=== PATIENT | female | born 1975 | race African-American/Black ===

== ENCOUNTER 2023-11-17 16:50 | Emergency (ER) | payer MEDICAID, SELFPAY ==
--- NOTE | ~2023-11-17 | CT_ITS ---
EXAMINATION: CT KNEE WITHOUT CONTRAST, RIGHT CLINICAL INFORMATION: Fall and deformity COMPARISON: Plain films today TECHNIQUE: Multiple serial thin slice helical CT scan images through the right knee were obtained. Soft tissue and bony algorithms were evaluated. Coronal and sagittal reformatted images were obtained. This CT examination was performed using dose optimization techniques as appropriate, variously including the following: *Automated exposure control *Adjustment of mA and/or kV according to patient size (this includes techniques or standardized protocols for targeted exams where dose is matched to indication/reason for exam; i.e. extremities or head) *Use of iterative reconstruction technique DLP: 183 mGy-cm FINDINGS: There is a lateral dislocation of the patella with kissing minimally displaced fractures along the medial aspect of the patella and lateral aspect of the femoral condyle. Additionally there is a small curvilinear osteochondral fragment seen within the intra-articular joint space. Likely donor site is along the anterolateral aspect of the femoral condyle along the trochlear notch. I do not appreciate any additional acute abnormality within the tibia or visualized proximal fibula. There is associated lipohemarthrosis in the knee joint space. CT/CT knee RT wo IV con IMPRESSION: Lateral dislocation of the patella with kissing minimally displaced fractures along the medial aspect of the patella and lateral aspect of the femoral condyle. Additionally there is a small curvilinear osteochondral fragment seen within the intra-articular joint space along the lateral joint space. Likely donor site is along the anterolateral aspect of the femoral condyle along the trochlear notch.
--- NOTE | ~2023-11-17 | XR_ITS ---
EXAMINATION: X-RAY FEMUR, RIGHT X-RAY KNEE, RIGHT CLINICAL INFORMATION: Fall, severe pain. COMPARISON: None available. TECHNIQUE: 2 views of the right femur and 2 views of the right knee. FINDINGS: Patient's rotation and body habitus somewhat limits the examination. Accounting for these limitations, no discrete fractures or subluxations are seen. A moderate-sized joint effusion is suspected in the right knee, although evaluation is limited due to obliquity of the lateral projection. No unexpected radiopaque foreign bodies. XR/XR femur RT 2V IMPRESSION: Evaluation is limited due to patient body habitus and rotation, in specific visualization of the right knee on the lateral view and right hip on the crosstable view is significantly limited. No discrete fractures or subluxations are seen. Suspect moderate size joint effusion in the right knee. In view of limitations of the examination, a repeat radiographic series or further correlation with CT could be obtained as clinically warranted if an occult injury is highly clinically suspected.
--- NOTE | ~2023-11-17 | XR_ITS ---
EXAMINATION: X-RAY FEMUR, RIGHT X-RAY KNEE, RIGHT CLINICAL INFORMATION: Fall, severe pain. COMPARISON: None available. TECHNIQUE: 2 views of the right femur and 2 views of the right knee. FINDINGS: Patient's rotation and body habitus somewhat limits the examination. Accounting for these limitations, no discrete fractures or subluxations are seen. A moderate-sized joint effusion is suspected in the right knee, although evaluation is limited due to obliquity of the lateral projection. No unexpected radiopaque foreign bodies. XR/XR knee RT 3V IMPRESSION: Evaluation is limited due to patient body habitus and rotation, in specific visualization of the right knee on the lateral view and right hip on the crosstable view is significantly limited. No discrete fractures or subluxations are seen. Suspect moderate size joint effusion in the right knee. In view of limitations of the examination, a repeat radiographic series or further correlation with CT could be obtained as clinically warranted if an occult injury is highly clinically suspected.
[2023-11-17 17:02] VITALS: BP 144/82; PULSE 105; O2SAT 98; BMI 28.6
--- NOTE | 2023-11-17 17:03 | ED_ITS ---
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 Denies taking anticoagulation. Has not been ambulatory since incident. Denies numbness, tingling, weakness, injury to other area Related Data Allergies Allergy/AdvReac Type Severity Reaction Status Date / Time No Known Allergies Allergy Verified 11/17/23 17:01 Review of Systems Review of Systems: Constitutional: No Fever, No Chills ENT/Mouth: No Ear Pain, No Nasal Congestion, No sore throat, No Rhinorrhea, No Swallowing Difficulty Cardiovascular: No Chest Pain, No SOB Respiratory: No Cough, No Sputum Gastrointestinal: No Nausea, No Vomiting, No Diarrhea, No Constipation, No Abdominal pain Musculoskeletal: +joint pain, No Myalgias, + Joint Swelling Skin: No Skin Lesions, No rash Neuro: No Weakness, No Numbness, No Paresthesias, no head trauma, no LOC Yes all other systems are reviewed and are negative Constitutional: Constitutional: Reports as per [facility] Past Medical History Attestation statement: The following information was validated with the patient. Source: old records reviewed Social History Social History Smoked in Last 30 Days: No Use of substances other than those prescribed or required for medical reasons: No Advance Directives: No Advance Directives Information Provided: No Patient : No Physical Exam Vital Signs: Vital Signs: Last Vital Signs Temp 98.3 F 11/17/23 17:05 Pulse 97 11/17/23 19:31 Resp 16 11/17/23 19:31 BP 109/61 11/17/23 19:31 Pulse Ox 100 11/17/23 19:31 O2 Del Method Room Air 11/17/23 19:31 BMI result Body Mass Index 28.6 Const: General: cooperative, healthy appearing and no acute distress Orientation/consciousness: patient oriented x3 Limitations: no limitations HEENT: Head: Yes normal to inspection and Yes atraumatic Ears: hearing grossly normal bilaterally General nose exam: Normal external nose present Face and sinus: Yes normal facial exam Eyes: General: appearance normal, both eyes and all related structures EOM: EOMs intact bilaterally Neck: Neck: Yes normal visual inspection and Yes no meningeal signs Resp: Effort & Inspection: normal respiratory effort and no respiratory distress Cardio: Rate: regular rate GI: Inspection: Yes normal to inspection Palpation (GI): Soft to palpation, nontender, no guarding and not rigid Skin: Rashes: no rashes Wounds: no wounds Neuro: General: patient oriented x3, tone normal and no meningeal signs Cranial nerves: Yes CN's II-XII intact bilaterally Gait exam (Neuro): Normal gait present Extrem: Other: Right knee with noted swelling/deformity. Externally rotated. Neurovascularly intact distally. No erythema/warmth or ecchymosis. Limited ROM secondary to pain Course Course Course Narrative: XR knee RT 3V/XR femur RT 2V IMPRESSION: Evaluation is limited due to patient body habitus and rotation, in specific visualization of the right knee on the lateral view and right hip on the crosstable view is significantly limited. No discrete fractures or subluxations are seen. Suspect moderate size joint effusion in the right knee. In view of limitations of the examination, a repeat radiographic series or further correlation with CT could be obtained as clinically warranted if an occult injury is highly clinically suspected. > will obtain CT for further eval. -1900--ED care transferred to [facility] pending CT & dispo per results Reevaluation(s) Reevaluation #1: Patient's CT scan showed as follows: EXAMINATION: CT KNEE WITHOUT CONTRAST, RIGHT CLINICAL INFORMATION: Fall and deformity COMPARISON: Plain films today TECHNIQUE: Multiple serial thin slice helical CT scan images through the right knee were obtained. Soft tissue and bony algorithms were evaluated. Coronal and sagittal reformatted images were obtained. This CT examination was performed using dose optimization techniques as appropriate, variously including the following: *Automated exposure control *Adjustment of mA and/or kV according to patient size (this includes techniques or standardized protocols for targeted exams where dose is matched to indication/reason for exam; i.e. extremities or head) *Use of iterative reconstruction technique DLP: 183 mGy-cm FINDINGS: There is a lateral dislocation of the patella with kissing minimally displaced fractures along the medial aspect of the patella and lateral aspect of the femoral condyle. Additionally there is a small curvilinear osteochondral fragment seen within the intra-articular joint space. Likely donor site is along the anterolateral aspect of the femoral condyle along the trochlear notch. I do not appreciate any additional acute abnormality within the tibia or visualized proximal fibula. There is associated lipohemarthrosis in the knee joint space. CT/CT knee RT wo IV con IMPRESSION: Lateral dislocation of the patella with kissing minimally displaced fractures along the medial aspect of the patella and lateral aspect of the femoral condyle. Additionally there is a small curvilinear osteochondral fragment seen within the intra-articular joint space along the lateral joint space. Likely donor site is along the anterolateral aspect of the femoral condyle along the trochlear notch. Dictated By: Jt Schofield MD Signed By: Electronically signed by Jt Schofield MD 11/17/231941 I consulted the orthopedic provider environmental engineering manager who recommended reducing the patella, knee immobilizer, non weightbearing on that side, and following up in the office. Patient's patella was reduced, without incident. Patient's PMS was intact prior to and after reduction. Patient's right leg was placed in a knee immobilizer and given crutches with crutch instructions. Patient's PMS was intact prior to and after knee immobilizer placement. Time: 20:53 Medications Administered Discontinued Medications Generic Name Dose Route Start Last Admin Trade Name Freq PRN Reason Stop Dose Admin Morphine Sulfate 2 mg 11/17/23 17:19 11/17/23 17:28 Morphine Sulfate 2 Mg/Ml Cartridge IVPUSH 11/17/23 17:20 2 mg ONCE ONE Administration Protocol Morphine Sulfate 4 mg 11/17/23 20:21 11/17/23 20:35 Morphine Sulfate 4 Mg/Ml Cartridge IVPUSH 11/17/23 20:22 4 mg ONCE ONE Administration Protocol Ondansetron HCl 4 mg 11/17/23 17:19 11/17/23 17:28 Ondansetron Hcl 4 Mg/2 Ml Vial IVPUSH 11/17/23 17:20 4 mg ONCE ONE Administration Procedures Orthopedic Fracture Reduction Fracture #1: Time Out Performed: Yes Side: right Fracture Reduction Location: other (patella) Analgesia: none Technique: direct manipulation Post-reduction neuro exam: intact Post-reduction vascular exam: intact Patient Tolerated Procedure: well Orthopedic Splinting/Casting Injury #1: Side: right Lower Extremity Injury Location: knee Lower Extremity Immobilizer: knee immobilizer Other Orthopedic Equipment: crutches Medical Decision Making Medical Decision Making MDM Narrative: 48-year-old [place]-speaking female with no significant past medical history presenting to the ED complaining of right knee pain and swelling 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 On exam tachycardic likely from pain, NAD, nontoxic appearing, physical exam as noted above. Concern for fracture versus dislocation. Low suspicion for DVT/vascular compromise Plan: X-ray, pain control Please refer to course for remaining clinical decision making, interpretation of labs/imaging results, and discussions with consultants and/or family members. Differential Diagnosis Differential Diagnoses: The differential diagnosis associated with the presentation includes As above Admission/Observation Consideration of admission/observation: Escalation of care including admission/observation considered Consult Healthcare Provider Management of the patient was discussed with: Fisher Clam (orthopedist consulted as noted in the course portion of this note.) Lab Data [facility] Lab Attestation statement: I reviewed the patient's lab results. Independent Interpretation I performed an independent interpretation of an: Plain X-Ray and CT Scan Radiology Impression Discussion of test interpretation with radiology: I have reviewed the radiologist's reading. External Record Review External record reviewed: Inpatient record, Office record, Outpatient record, Prior outpatient labs, Prior outpatient radiology, Primary care record and Outside ED record Tests considered The following testing was considered but not selected: As above Prescription Management I considered prescription management with: Pain Medication Critical Care Time Critical Care Time Critical Care Time: Yes Total Critical Care Time: 45 Attestation: I spent 45 minutes of Critical Care Time with this patient. This does not include time spent on separately reported billable procedures. Discharge Plan Discharge Clinical Impression: Injury of knee, Femur fracture, Dislocated knee Patient Disposition: Home, Self-Care Instructions: Leg Fracture (ED), Crutch Instructions (ED), Knee Dislocation (ED) Additional Instructions: Do NOT put ANY weight on the right lower extremity. Follow up with your primary care provider and an orthopedic provider. Return to the emergency department immediately if your symptoms worsen or if you develop any dizziness, shortness of breath, difficulty breathing, chest pain, blurry vision, loss of vision, nausea, vomiting, abdominal pain, fever, chills, back pain, or any other complaints. NO ponga TORI?N peso sobre la extremidad inferior derecha. Otis un seguimiento con nur proveedor de atenci?n primaria y un proveedor ortop?dico. Regrese al departamento de emergencias inmediatamente si ranjana s?ntomas empeoran o si presenta mareos, dificultad para respirar, dificultad para respirar, dolor en el pecho, visi?n borrosa, p?rdida de la visi?n, n?useas, v?mitos, dolor abdominal, fiebre, escalofr?os, dolor de espalda o cualquier otras quejas. Referrals: [facility] [Provider Group] (Call to establish and follow up with a primary care provider. If you already have a primary care provider, please follow up with them. Llame para establecer y realizar un seguimiento con un proveedor de atenci?n primaria. Si ya tiene un proveedor de atenci?n primaria, otis un seguimiento con ?l. ) [facility] [[facility]] (Call to establish and follow up with a primary care provider. If you already have a primary care provider, please follow up with them. Llame para establecer y realizar un seguimiento con un proveedor de atenci?n primaria. Si ya tiene un proveedor de atenci?n primaria, otis un seguimiento con ?l. ) [facility] [[facility]] (Call to establish and follow up with a primary care provider. If you already have a primary care provider, please follow up with them. Llame para establecer y realizar un seguimiento con un proveedor de atenci?n primaria. Si ya tiene un proveedor de atenci?n primaria, otis un seguimiento con ?l. ) [facility] [Provider Group] (Call to establish and follow up with an orthopedic provider. Llame para establecer y realizar un seguimiento con un proveedor ortop?dico.) Stand Alone Forms: Work/School Release Print Language: [place]
[2023-11-17 17:05] VITALS: BP 109/64; PULSE 102; RESP 18; TEMP 36.8; O2SAT 99
--- NOTE | 2023-11-17 17:17 | PC.NURSE ---
22gIV placed in right hand w/o difficulty. will administer medication when able. pt awaiting xray at this time.
[2023-11-17] MEDS: Morphine Sulfate 2 MG/ML CARTRIDGE IVPUSH (17:28)
[2023-11-17] MEDS: ondansetron HCL 4 MG/2 ML VIAL IVPUSH (17:28)
--- NOTE | 2023-11-17 17:32 | PC.NURSE ---
medication administered per provider order.
--- NOTE | 2023-11-17 17:40 | PC.NURSE ---
pt to xray at this time.
--- NOTE | 2023-11-17 19:06 | PC.NURSE ---
pt returned from CT at this time.
[2023-11-17 19:31] VITALS: BP 109/61; PULSE 97; RESP 16; O2SAT 100
--- NOTE | 2023-11-17 19:32 | PC.NURSE ---
vss and up to date. pt verbalizing no change in pain at this time. resting comfortably in no apparent distress - awaiting results from CT at this time. bedside.
[2023-11-17] MEDS: Morphine Sulfate 4 MG/ML CARTRIDGE IVPUSH (20:35)
--- NOTE | 2023-11-17 20:39 | PC.NURSE ---
pt c/o increase in right knee pain - provider aware. medication administered per provider order. ED provider/dust control engineer bedside discussing results of xray/CT - pt aware of plan of care at this time.
[2023-11-17 21:11] VITALS: BP 107/63; PULSE 90; RESP 18; TEMP 36.8; O2SAT 98
--- NOTE | 2023-11-17 21:11 | PC.NURSE ---
pt right knee placed in immobilizer by tech - pt stating that she wants to take a break prior to crutch training.
== END 2023-11-17 21:25 | disposition home or self-care (01) ==
PROVIDERS: Emergency Provider Internal Medicine
DX: S72.91XA Unspecified fracture of right femur, initial encounter for closed fracture (principal); S83.104A Unspecified dislocation of right knee, initial encounter; M79.604 Pain in right leg; W01.10XA Fall on same level from slipping, tripping and stumbling with subsequent striking against unspecified object, initial encounter; Y93.9 Activity, unspecified; Y92.9 Unspecified place or not applicable; Y99.9 Unspecified external cause status; Z79.899 Other long term (current) drug therapy
CPT/HCPCS: 73552; 73562; 73700; 96374; 96375; 96376; 99284; J2270; J2405

== ENCOUNTER 2023-11-24 10:53 | Outpatient (REF) | payer MEDICAID, SELFPAY ==
--- NOTE | ~2023-11-24 | XR_ITS ---
EXAMINATION: XR KNEE, RIGHT CLINICAL INFORMATION: Right knee pain COMPARISON: Right knee x-rays on 11/17/2023 TECHNIQUE: Three views of the right knee. FINDINGS: BONES: Bony structures are intact. There is no focal bone destruction or periosteal reaction seen. JOINTS: There is lateral subluxation of the right patella. SOFT TISSUE: Right suprapatellar fat pad shows bulging increase in density. No radiopaque foreign body or abnormal air collection is seen. XR/XR knee RT 3V IMPRESSION: 1. Recurrent prominent right knee effusion. 2. Current examination shows lateral subluxation of the right patellofemoral joint. 3. No fracture or dislocation or signs of osteomyelitis are found.
== END 2023-11-24 10:54 | disposition home or self-care (01) ==
LOC: HO.HOSX 10:53
PROVIDERS: Visit Provider Physician Assistant
DX: S82.001A Unspecified fracture of right patella, initial encounter for closed fracture (principal); S83.004A Unspecified dislocation of right patella, initial encounter; S72.411A Displaced unspecified condyle fracture of lower end of right femur, initial encounter for closed fracture
CPT/HCPCS: 73562; 99212

== ENCOUNTER 2023-11-24 13:49 | Outpatient (AMB) | payer MEDICAID, SELFPAY ==
--- NOTE | 2023-11-24 14:07 | MHC.OFFVIS ---
Intake Intake Visit Reasons: FC- RT Femur fracture, Dislocated knee Intake Note: Ana Paula is a 48 year old female who presents today for a evaluation of her right knee pain, DOI 11/17/23. Patient reports she slip and fell on her dogs urine in her kitchen. She states that her pain is getting better every day and is able to apply more weight on her right side. Allergies No Known Allergies Allergy (Verified 11/24/23 14:16) HPI FC- RT Femur fracture, Dislocated knee HPI Details 48-year-old female, who is Trin[place] speaking, presents in the office today, as a new patient, for an evaluation of right knee pain. The patient presented to the ED on 11/17/2023 status post a mechanical slip and fall on dog urine. X-rays and CT of the right knee were obtained. Her knee was reduced without incident. She was placed in a knee immobilizer and given crutches. The patient reports her pain is getting better daily and is able to apply weight on her right lower extremity. She is accompanied in the office today by a male family member. Review of Systems Const All systems reviewed & are unremarkable except as noted in HPI and below Physical Exam Const General: cooperative and no acute distress Orientation/consciousness: patient oriented x3 Resp Effort & Inspection: normal respiratory effort and able to speak in complete sentences Cardio Peripheral pulses: Peripheral pulses 2+ throughout Skin General skin exam: no rashes or lesions noted Neuro General: patient oriented x3 Extrem Other: Right knee: Moderate effusion with resolving ecchymosis. ROM was not attempted due to possible fracture fragment in the joint space. Able to dorsiflex and plantarflex. Sensation intact. Left knee: Hyper-mobility noted of the patella. Office Procedures Fracture Care Fracture Billing Code: Fracture Billing Code Assessment & Plan Assessment & Plan (1) Fracture of right patella: Code(s): S82.001A - Unspecified fracture of right patella, initial encounter for closed fracture (2) Dislocation of right patella: Code(s): S83.004A - Unspecified dislocation of right patella, initial encounter (3) Fracture of femoral condyle, right, closed: Code(s): S72.411A - Displaced unspecified condyle fracture of lower end of right femur, initial encounter for closed fracture Plan Ms. Joel Abarca is a 48-year-old female, who is Trinid[place] speaking, presents in the office today, as a new patient, for an evaluation of right knee pain. The patient presented to the ED on 11/17/2023 status post a mechanical slip and fall on dog urine. X-rays and CT of the right knee were obtained. Her knee was reduced without incident. She was placed in a knee immobilizer and given crutches. The patient reports her pain is getting better daily and is able to apply weight on her right lower extremity. She is accompanied in the office today by a male family member. Dr. Betts was available to speak with me and review the imaging while in the office today and a collaborative treatment plan was made. I have placed an order for a stat CT scan to further evaluation if there is any fracture fragments in the joint. The patient was placed in an ACL brace, off the shelf, locked in extension. The patient was given an out of work note until further evaluation. Follow up will be in one week after the stat CT is obtained with Dr. Betts in the office, or sooner if needed. X-rays of the right knee which were obtained while in the office today and were reviewed by me, Cristina Lebron PA-C, redemonstrated of lateral aspect of the patella fracture. Nondisplaced fracture of the lateral femoral condyle. X-rays of the right knee, obtained on 11/17/2023, revealed: Evaluation is limited due to patient body habitus and rotation, in specific visualization of the right knee on the lateral view and right hip on the crosstable view is significantly limited. No discrete fractures or subluxations are seen. Suspect moderate size joint effusion in the right knee. In view of limitations of the examination, a repeat radiographic series or further correlation with CT could be obtained as clinically warranted if an occult injury is highly clinically suspected. CT of the right knee, obtained on 11/17/2023, revealed: Lateral dislocation of the patella with kissing minimally displaced fractures along the medial aspect of the patella and lateral aspect of the femoral condyle. Additionally there is a small curvilinear osteochondral fragment seen within the intra-articular joint space along the lateral joint space. Likely donor site is along the anterolateral aspect of the femoral condyle along the trochlear notch. Orders: Orders CT knee RT wo IV con Today S82.001A - Unspecified fracture of right patella, initial encounter for closed fracture, S83.104A - Unspecified dislocation of right knee, initial encounter XR knee RT 3V Today M25.569 - Pain in unspecified knee Patient Instructions: Scribed for Cristina Lebron PA-C by Tasha Mccullough certified medical asst, on 11/24/2023 at 1:52 pm, EST. Coding Level of Care Code New Pt Level 4 (98835) Diagnoses Fracture of right patella S82.001A Dislocation of right patella S83.004A Fracture of femoral condyle, right, closed S72.411A CPT Codes Fracture Care - Fracture Billing Code: Fracture Billing Code ([id number])
== END 2023-11-24 15:35 | disposition home or self-care (01) ==
PROVIDERS: Visit Provider Physician Assistant
DX: S82.001A Unspecified fracture of right patella, initial encounter for closed fracture (principal); S83.004A Unspecified dislocation of right patella, initial encounter; S72.411A Displaced unspecified condyle fracture of lower end of right femur, initial encounter for closed fracture; W01.0XXA Fall on same level from slipping, tripping and stumbling without subsequent striking against object, initial encounter
CPT/HCPCS: 99204

== ENCOUNTER → 2023-12-01 10:41 | Outpatient (BNVA) | payer MEDICAID, SELFPAY | PROVIDERS: Visit Provider Physician Assistant ==

== ENCOUNTER 2023-12-22 07:45 | Outpatient (REF) | payer MEDICAID, SELFPAY ==
--- NOTE | ~2023-12-22 | CT_ITS ---
EXAMINATION: CT KNEE WITHOUT CONTRAST, RIGHT CLINICAL INFORMATION: Patellar dislocation follow-up COMPARISON: 11/24/2023 TECHNIQUE: Thin section axial images with sagittal coronal reformats obtained. This CT examination was performed using dose optimization techniques as appropriate, variously including the following: *Automated exposure control *Adjustment of mA and/or kV according to patient size (this includes techniques or standardized protocols for targeted exams where dose is matched to indication/reason for exam; i.e. extremities or head) *Use of iterative reconstruction technique DLP: 134 mGy-cm FINDINGS: Previously noted lateral subluxation of the patella is less apparent today with improved if not near anatomic alignment. Noted however is a tiny flake fracture or avulsion fracture off the medial patellar facet with an associated flake fracture or chip fracture noted along the lateral femoral condyle, consistent with a prior patellar dislocation and reduction. There is a small joint effusion present. This is seen in the suprapatellar region. The quadriceps tendon insertion and patellar tendon are intact. There is slight subchondral cyst formation in the lateral tibial plateau. Mild spurring in the lateral femoral condyle is noted. The soft tissue shadows of the medial collateral ligament and lateral collateral ligament components appear intact. There is no evidence for a new fracture or new dislocation or subluxation. The muscular structures in the distal thigh region of the knee appear intact. CT/CT knee RT wo IV con IMPRESSION: Sequela of patellar dislocation with a persistent joint effusion. If there is concern for meniscal or ligamentous injury then MRI could be done.
== END 2023-12-22 07:46 | disposition home or self-care (01) ==
LOC: HO.CT 07:45
PROVIDERS: Visit Provider Physician Assistant
DX: S82.001A Unspecified fracture of right patella, initial encounter for closed fracture (principal); S83.104A Unspecified dislocation of right knee, initial encounter
CPT/HCPCS: 73700

== ENCOUNTER 2024-01-19 14:29 | Outpatient (AMB) | payer MEDICAID, SELFPAY ==
[2024-01-19 14:47] VITALS: BMI 28.5
--- NOTE | 2024-01-19 14:47 | A.OFFVIS_ITS ---
Intake Vital Signs 01/19/24 14:47 Height 5 ft 2 in Weight 156 lb BMI 28.5 Intake Visit Reasons: OV - RT knee CT scan review Intake Note: Ana Paula is a 48 year old female who presents today for a CT scan review of her right knee, DOI 11/17/23. Allergies No Known Allergies Allergy (Verified 01/19/24 14:51) HPI OV - RT knee CT scan review HPI Details 48-year-old female, who is Northern [place] speak ing, presents in the office today for a follow up of right knee dislocation and fractured patella and review of her CT scan. She reports overall she have been doing good. She would like to know if there was a small brace or something more comfortable to place the foot on the floor. [facility] Medical History (Updated 01/19/24 @ 14:52 by Christa De Los Santos CMA) delivery delivered Social History (Updated 01/19/24 @ 14:53 by Christa De Los Santos CMA) Patient Tobacco Use Status: Never used Tobacco Current occupation: [employer] , Right hand dominate Review of Systems Const All systems reviewed & are unremarkable except as noted in HPI and below Physical Exam Vital Signs: BMI result Body Mass Index 28.5 Const General: cooperative, healthy appearing and no acute distress Resp Effort & Inspection: normal respiratory effort and able to speak in complete sentences Cardio Rate: regular rate Peripheral pulses: Peripheral pulses 2+ throughout GI Palpation (GI): Soft to palpation Skin Lesions: no lesions Rashes: no rashes Extrem Other: Left knee: Normal to inspection. No ecchymosis, erythema, or joint effusion. ROM is 0-45 degrees. NVI. Assessment & Plan Assessment & Plan (1) Fracture of right patella: Code(s): S82.001A - Unspecified fracture of right patella, initial encounter for closed fracture (2) Dislocation of right patella: Code(s): S83.004A - Unspecified dislocation of right patella, initial encounter (3) Fracture of femoral condyle, right, closed: Code(s): S72.411A - Displaced unspecified condyle fracture of lower end of right femur, initial encounter for closed fracture Plan Ms. Joel Abarca is a 48-year-old female, who is Northern Irish speaking, presents in the office today for a follow up of right knee dislocation and fractured patella and review of her CT scan. She reports overall she have been doing good. She would like to know if there was a small brace or something more comfortable to place the foot on the floor. The patient will be referred to physical therapy to work on ROM of the right knee. She may weight bear as tolerated. She was placed in a play-maker knee brace, off the shelf, while in the office today. Follow up will be in 6 weeks, or sooner if needed. CT of the right knee, obtained on 12/22/2023, revealed: Sequela of patellar dislocation with a persistent joint effusion. If there is concern for meniscal or ligamentous injury then MRI could be done. Orders: Orders PT Evaluation and Treatment Today S72.411A - Displaced unspecified condyle fracture of lower end of right femur, initial encounter for closed fracture, S82.001A - Unspecified fracture of right patella, initial encounter for closed fracture, S83.004A - Unspecified dislocation of right patella, initial encounter Patient Instructions: Scribed by Tasha Mccullough vp medical, for Cristina Lebron PA-C on 01/19/2024 at 2:57 pm, EST. Coding Level of Care Code Global (99138) Diagnoses Fracture of right patella S82.001A Dislocation of right patella S83.004A Fracture of femoral condyle, right, closed S72.411A
== END 2024-01-19 15:51 | disposition home or self-care (01) ==
PROVIDERS: Visit Provider Physician Assistant
DX: S82.001A Unspecified fracture of right patella, initial encounter for closed fracture (principal); S83.004A Unspecified dislocation of right patella, initial encounter; S72.411A Displaced unspecified condyle fracture of lower end of right femur, initial encounter for closed fracture
CPT/HCPCS: 99213

== ENCOUNTER → 2024-01-19 14:29 | Outpatient (BNVA) | payer MEDICAID, SELFPAY | PROVIDERS: Visit Provider Physician Assistant | DX: S82.001D Unspecified fracture of right patella, subsequent encounter for closed fracture with routine healing (principal); S83.004D Unspecified dislocation of right patella, subsequent encounter; S72.411D Displaced unspecified condyle fracture of lower end of right femur, subsequent encounter for closed fracture with routine healing | CPT/HCPCS: 99212 ==

== ENCOUNTER 2024-03-06 12:34 | Outpatient (AMB) | payer MEDICAID, SELFPAY ==
--- NOTE | 2024-03-06 12:45 | MHC.OFFVIS ---
Intake Vital Signs 03/06/24 12:49 Height 5 ft 2 in Weight 145 lb BMI 26.5 Intake Visit Reasons: O/V Fracture of right patella 11/17/23 Intake Note: Ana Paula is a 48 year old female who presents today for a follow up of her right patella dislocation, DOI 11/17/23. Patient reports she is doing well, however when she is doing with PT she tends to be very sore. She expresses that she is unable to bend her knee as much. Allergies No Known Allergies Allergy (Verified 03/06/24 12:48) HPI O/V Fracture of right patella 11/17/23 HPI Details 48-year-old female, who is Mauritian speaking, presents in the office today for a follow up of right knee dislocation and fractured patella. I last saw the patient in the office on 01/19/2024 when she was referred to PT. She was placed in a play-maker knee brace and instructed to weight bear as tolerated. While in the office today the patient reports she is doing well. Confirms participating in PT but states she gets soreness afterwards. She states she is unable to bend the knee fully. [facility] Medical History (Updated 03/06/24 @ 12:58 by Tasha Mccullough) delivery delivered Social History Patient Tobacco Use Status: Never used Tobacco Current occupation: [employer] , Right hand dominate Review of Systems Const All systems reviewed & are unremarkable except as noted in HPI and below Physical Exam Vital Signs: BMI result Body Mass Index 26.5 Const General: cooperative, healthy appearing and no acute distress Resp Effort & Inspection: normal respiratory effort and able to speak in complete sentences Cardio Rate: regular rate Peripheral pulses: Peripheral pulses 2+ throughout GI Palpation (GI): Soft to palpation Skin Lesions: no lesions Rashes: no rashes Extrem Other: Right knee: Mild effusion. ROM is 0-80 degrees. NVI. Assessment & Plan Assessment & Plan (1) Fracture of right patella: Code(s): S82.001A - Unspecified fracture of right patella, initial encounter for closed fracture Qualifiers: Encounter type: subsequent encounter Fracture alignment: nondisplaced Fracture healing: with routine healing Fracture morphology: unspecified fracture morphology Fracture type: closed Qualified Code(s): S82.001D - Unspecified fracture of right patella, subsequent encounter for closed fracture with routine healing (2) Dislocation of right patella: Code(s): S83.004A - Unspecified dislocation of right patella, initial encounter Qualifiers: Encounter type: subsequent encounter Qualified Code(s): S83.004D - Unspecified dislocation of right patella, subsequent encounter (3) Fracture of femoral condyle, right, closed: Code(s): S72.411A - Displaced unspecified condyle fracture of lower end of right femur, initial encounter for closed fracture Qualifiers: Encounter type: subsequent encounter Fracture alignment: nondisplaced Fracture healing: with routine healing Qualified Code(s): S72.414D - Nondisplaced unspecified condyle fracture of lower end of right femur, subsequent encounter for closed fracture with routine healing Plan Ms. Joel Abarca is a 48-year-old female, who is Mauritian speaking, presents in the office today for a follow up of right knee dislocation and fractured patella. I last saw the patient in the office on 01/19/2024 when she was referred to PT. She was placed in a play-maker knee brace and instructed to weight bear as tolerated. While in the office today the patient reports she is doing well. Confirms participating in PT but states she gets soreness afterwards. She states she is unable to bend the knee fully. Patient will continue to work with PT. She should continue to use the brace until quad control and ROM improves to 0-90 degrees. She will remain out of work until her follow up. The patient had paperwork for the office to fill out with her today. Follow up will be in 6 weeks, or sooner if needed. Orders: Orders XR knee RT 3V Today M25.569 - Pain in unspecified knee Patient Instructions: Scribed by Tasha Mccullough medical technical writer, for Cristina Lebron PA-C on 03/06/2024 at 12:21 pm, EST. Coding Level of Care Code Est Pt Level 3 (46829) Diagnoses Closed nondisplaced fracture of right patella with routine healing, unspecified fracture morphology, subsequent encounter S82.001D Encounter type: subsequent encounter Fracture alignment: nondisplaced Fracture healing: with routine healing Fracture morphology: unspecified fracture morphology Fracture type: closed Dislocation of right patella, subsequent encounter S83.004D Encounter type: subsequent encounter Closed nondisplaced fracture of condyle of right femur with routine healing, subsequent encounter S72.414D Encounter type: subsequent encounter Fracture alignment: nondisplaced Fracture healing: with routine healing
[2024-03-06 12:49] VITALS: BMI 26.5
== END 2024-03-06 13:21 | disposition home or self-care (01) ==
PROVIDERS: Visit Provider Physician Assistant
DX: S82.001D Unspecified fracture of right patella, subsequent encounter for closed fracture with routine healing (principal); S83.004D Unspecified dislocation of right patella, subsequent encounter; S72.414D Nondisplaced unspecified condyle fracture of lower end of right femur, subsequent encounter for closed fracture with routine healing
CPT/HCPCS: 99213

== ENCOUNTER 2024-03-06 14:55 | Outpatient (REF) | payer MEDICAID, SELFPAY ==
--- NOTE | ~2024-03-06 | XR_ITS ---
EXAMINATION: XR KNEE, RIGHT CLINICAL INFORMATION: Pain in unspecified knee. COMPARISON: CT right knee 12/22/2023. X-ray right knee 11/24/2023. TECHNIQUE: AP standing view of bilateral knees as well as sunrise and lateral views of the right knee. FINDINGS: RIGHT KNEE: Moderate joint effusion. Lateral subluxation of the right patella appears more pronounced. The medial and lateral compartments are preserved. The tiny fractures off the medial patellar facet and along the lateral femoral condyle identified on CT scan of 12/22/2023 are difficult to appreciate on this exam. LEFT KNEE: Medial and lateral compartments are preserved. XR/XR knee RT 3V IMPRESSION: Moderate joint effusion right knee. Lateral subluxation of the right patella appears more pronounced. The tiny fractures off the medial patellar facet and along the lateral femoral condyle identified on CT scan of 12/22/2023 are difficult to appreciate on this exam.
== END 2024-03-06 14:56 | disposition home or self-care (01) ==
LOC: HO.HOSX 14:55
PROVIDERS: Visit Provider Physician Assistant
DX: S82.001D Unspecified fracture of right patella, subsequent encounter for closed fracture with routine healing (principal); S83.004D Unspecified dislocation of right patella, subsequent encounter; S72.414D Nondisplaced unspecified condyle fracture of lower end of right femur, subsequent encounter for closed fracture with routine healing
CPT/HCPCS: 73562; 99212

== ENCOUNTER 2024-04-04 14:00 | Outpatient (RCR) | payer MEDICAID, SELFPAY ==
--- NOTE | 2024-02-20 15:21 | MHC.PT.EP ---
[facility] [place] Office [place] Office [place] Office [address] [phone] F: [phone] F: [phone] F: [phone] F: [phone] Physical Therapy Plan of Care Date of Evaluation: 02/20/24 Date of Surgery: 11/17/24 Diagnosis: Fracture of RIGHT patella, Dislocation of right patella, Fracture of femoral condyle, right, closed (NO SURGERY) (RS) Assessment: Patient is a pleasant 48 y.o. female who is referred to PT by Cristina Lebron PA-C, with Dx of fracture of RIGHT patella, Dislocation of right patella, fracture of femoral condyle, right, closed (NO SURGERY). Patient impairments include pain, localized swelling, limited knee ROM, weakness in R hip/knee, antalgic gait. 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 Patient will benefit from skilled PT to address aforementioned impairments and functional limitations to meet established goals. Frequency and Duration: The patient will be seen 2x/week for 4 weeks Short Term Goals: 2 weeks Patient demonstrates consistency and independence with HEP to self manage symptoms. Patient demonstrates improved sequencing on stairs with forward facing step up and down with proper pattern ( up with good, down with bad ) step to pattern with use of railing to get in/out of her apartment. [employer] Goals: 4 weeks She presents with increased R knee flexion AROM 120 degrees to be able to restore full joint mobility for performing sit/stand to low chair. 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 Treatment Plan: Modalities to reduce pain, spasms and effusion. Manual therapy to restore motion and function. Therapeutic exercise to improve strength and flexibility. Neuromuscular re-education for posture and balance. Therapeutic activities to return to functional activities of daily living. Electronically signed by: Thalia Rosales, PT, DPT Please sign and return to therapist. Thank you for your referral.
--- NOTE | 2024-05-17 09:53 | MHC.PT.DC ---
[facility] Office [place] Office [place] Office [address] [phone] F: [phone] F: [phone] F: [phone] F: [phone] Physical Therapy Discharge Report Diagnosis: Fracture of RIGHT patella, Dislocation of right patella, Fracture of femoral condyle, right, closed (NO SURGERY) (RS) Date of Surgery: 11/17/24 Date of Evaluation: 02/20/24 Date of Discharge: 05/17/24 Treatments to Date: 8 Cancellations to Date: 4 No Shows to Date: 5 Discharge Status: Independent with HEP Visit Non-compliance Discharge Summary: Ana Paula ceased attending PT on her own accord and did not show to her last scheduled PT sessions and is discharged for non compliance with attendance. During her last PT session on 04/04/24 the assessment reads, I changed her program to focus on all weight bearing activities and incorporating functional movements; squats, stairs, mini lunges. She exhibits some fear moving into greater flexion as she notes pulling along patellar tendon. She is able to distribute weight equally through both LEs. Electronically signed by: Thalia Rosales, PT, DPT Please sign and return to therapist. Thank you for your referral.
== END 2024-05-17 09:53 | disposition home or self-care (01) ==
LOC: HO.PT 14:00
PROVIDERS: PCP Registered Nurse; Visit Provider Physician Assistant
DX: S72.411D Displaced unspecified condyle fracture of lower end of right femur, subsequent encounter for closed fracture with routine healing (principal); S83.004D Unspecified dislocation of right patella, subsequent encounter
CPT/HCPCS: 97110; 97116; 97140; 97161; 97530

== ENCOUNTER 2024-04-26 09:54 | Outpatient (REF) | payer MEDICAID, SELFPAY | END 2024-04-26 09:55 | disposition home or self-care (01) | LOC: HO.HOSX 09:54 | PROVIDERS: Visit Provider Physician Assistant | DX: Z13.89 Encounter for screening for other disorder (principal) ==